=== PATIENT | female | born 1985 ===

== ENCOUNTER 2017-11-27 10:36 | Emergency (ER) | payer OTHER ==
[2017-11-27 10:52] VITALS: BMI 31.0
[2017-11-27 11:00] VITALS: RESP 18; TEMP 98.7; O2SAT 98
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
[2017-11-27 12:36] VITALS: BP 115/63; PULSE 75
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
--- NOTE | 2017-11-27 13:37 | RAD ---
PROCEDURE: Cervical Spine Radiographs. HISTORY: Pain. COMPARISON: None. FINDINGS: BONES: Alignment maintained. No fracture. Dens Intact. DISC SPACES: Normal. SOFT TISSUES: Normal. No prevertebral soft tissue swelling. OTHER FINDINGS: None. IMPRESSION: Normal cervical spine radiographs
== END 2017-11-27 13:47 | disposition home or self-care (01) ==
LOC: ED 10:36
DX: S16.1XXA Strain of muscle, fascia and tendon at neck level, initial encounter (principal); V43.52XA Car driver injured in collision with other type car in traffic accident, initial encounter; Y92.410 Unspecified street and highway as the place of occurrence of the external cause; R51 Headache
CPT/HCPCS: 70450; 72050; 96372; 99284; J1885